=== PATIENT | male | born 1960 | race Caucasian/White ===

== ENCOUNTER 2025-04-11 06:29 | Day surgery (SDC) | payer OTHER, SELFPAY | END 2025-04-11 15:13 | disposition home or self-care (01) | LOC: GI 06:29 | PROVIDERS: ATTENDING PHYSICIAN Internal Medicine Gastroenterology | DX: R12 Heartburn (principal); K44.9 Diaphragmatic hernia without obstruction or gangrene; K31.7 Polyp of stomach and duodenum; K22.70 Barrett's esophagus without dysplasia; K31.89 Other diseases of stomach and duodenum; K63.89 Other specified diseases of intestine | CPT/HCPCS: 43239; 88305 ==

== ENCOUNTER 2025-06-07 06:20 | Day surgery (SDC) | payer OTHER, SELFPAY ==
[2025-06-07 08:41] VITALS: BMI 26.4
[2025-06-07 08:42] VITALS: BMI 26.4
[2025-06-07 08:43] VITALS: BP 148/91
[2025-06-07 10:30] VITALS: BP 118/81
[2025-06-07 10:45] VITALS: BP 116/84
== END 2025-06-07 11:20 | disposition home or self-care (01) ==
LOC: SDS 06:20
PROVIDERS: ATTENDING PHYSICIAN Internal Medicine Gastroenterology
DX: K22.70 Barrett's esophagus without dysplasia (principal); K31.89 Other diseases of stomach and duodenum; K86.9 Disease of pancreas, unspecified; R93.2 Abnormal findings on diagnostic imaging of liver and biliary tract
CPT/HCPCS: 43242

== ENCOUNTER → 2025-07-10 06:52 | Outpatient (REF) | payer OTHER, SELFPAY | LOC: RAD 06:52 | PROVIDERS: ATTENDING PHYSICIAN Internal Medicine Gastroenterology; FAMILY PHYSICIAN Internal Medicine | DX: K82.8 Other specified diseases of gallbladder (principal) | CPT/HCPCS: 76700 ==